=== PATIENT | male | born 1990 | race Caucasian/White ===

== ENCOUNTER 2018-11-02 11:19 | Emergency (ER) | payer OTHER ==
[~2018-11-02] VITALS: Ht 175.3 cm; Wt 81.7 kg
[2018-11-02] MEDS ORDERED: IBUPROFEN 600600 M1 PO (12:26)
[2018-11-02] MEDS ORDERED: ACETAMINOPHEN-1 EAC1 PO (12:26)
[2018-11-02 12:44] VITALS: BP 150/90
== END 2018-11-02 12:45 | disposition home or self-care (01) ==
LOC: M.ERS 11:19
DX: S20.211A Contusion of right front wall of thorax, initial encounter (principal); F17.210 Nicotine dependence, cigarettes, uncomplicated; W22.8XXA Striking against or struck by other objects, initial encounter; Y93.I9 Activity, other involving external motion; Y92.89 Other specified places as the place of occurrence of the external cause; Y99.8 Other external cause status

== ENCOUNTER 2019-02-04 22:11 | Emergency (ER) | payer OTHER ==
[~2019-02-04 22:11] MED LIST: ACETAMINOPHEN-1 EAC1 PO; IBUPROFEN 600600 M1 PO
== END 2019-02-04 22:43 | disposition left against medical advice (07) ==
LOC: M.ERS 22:11
DX: Z53.21 Procedure and treatment not carried out due to patient leaving prior to being seen by health care provider (principal)

== ENCOUNTER 2021-06-24 18:46 | Emergency (ER) | payer OTHER ==
[~2021-06-24] VITALS: Ht 157.5 cm; Wt 86.2 kg
[2021-06-24] MEDS ORDERED: IBUPROFEN 800800 M1 PO (21:10)
[2021-06-24] MEDS ORDERED: FLEXERIL PO (21:10)
[2021-06-24 21:33] VITALS: BP 152/97
== END 2021-06-24 21:33 | disposition home or self-care (01) ==
LOC: M.ERS 18:46
DX: S43.492A Other sprain of left shoulder joint, initial encounter (principal); S40.012A Contusion of left shoulder, initial encounter; V86.59XA Driver of other special all-terrain or other off-road motor vehicle injured in nontraffic accident, initial encounter; Y93.89 Activity, other specified; Y92.413 State road as the place of occurrence of the external cause; Y99.9 Unspecified external cause status